=== PATIENT | female | born 1950 | race Caucasian/White ===

== ENCOUNTER 2017-08-30 10:33 | Day surgery (SDC) | payer OTHER ==
[~2017-08-30] VITALS: Ht 152.4 cm; Wt 71.4 kg
[2017-08-30 14:04] VITALS: BP 148/69; PULSE 59; RESP 22; Ht 152.4 cm; Wt 71.4 kg
[2017-08-30] MEDS ORDERED: HYDR25TA6 PO (14:19)
[2017-08-30] MEDS ORDERED: OMEP20CA16 PO (14:19)
[2017-08-30] MEDS ORDERED: ATEN50TA PO (14:19)
[2017-08-30] MEDS ORDERED: ZOC10 PO (14:19)
[2017-08-30] MEDS ORDERED: ASPI81TA3 PO (14:19)
[2017-08-30] MEDS ORDERED: BENA20TA48 PO (14:19)
[2017-08-30] MEDS ORDERED: METF1000 PO (14:19)
--- NOTE | 2017-08-30 14:28 | OPPN ---
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
[2017-08-30 14:58] VITALS: BP 135/74; PULSE 55; RESP 18
[2017-08-30] MEDS ORDERED: FENTAnyl 50 MCG/ML VIAL ONE (15:02)
[2017-08-30] MEDS ORDERED: MIDAZOLAM 1 MG/ML 2 ML INJ ONE (15:02)
--- NOTE | 2017-08-30 15:26 | GILP ---
DATE OF PROCEDURE: NAME OF PROCEDURE: Colonoscopy. SURGEON: Maria Luisa Figueroa MD PREOPERATIVE DIAGNOSIS: Positive occult blood in stool. POSTOPERATIVE DIAGNOSES: 1. Colonoscopy all the way to the cecum. 2. Internal hemorrhoids. 3. No colon neoplasm was identified. INDICATION FOR THE PROCEDURE: Ms. Katy Alvarez is a 67-year-old female patient who had posi tive occult blood in stool. The patient was scheduled for colonoscopy for further evaluation. The procedure and possible complications were well explained to the patient. She understood and con sented to the procedure. DESCRIPTION OF PROCEDURE: Under the influence of fentanyl and Versed, the colonoscope was carefully introduced in the rectum and under direct vision, it was advanced all the way to the cecum. FINDINGS: The patient had internal hemorrhoids. No colon neoplasm was identified. She tolerated the procedure very well and there was no complication from the procedure. At the end of the procedures, she was awake with stable vital signs and she was discharged home to the care of her family. IMPRESSION: 1. Colonoscopy all the way to the cecum. 2. Internal hemorrhoids. 3. No colon neoplasm was identified. PLAN: Next screening colonoscopy in 10 years. Dictated By: MARIA LUISA BERMUDEZ/SAM Conf#: [id number] DID#: [id number]
== END 2017-08-30 18:44 | disposition home or self-care (01) ==
LOC: GIL 10:33
PROVIDERS: ATTEND Internal Medicine Gastroenterology
DX: K92.1 Melena (principal); K64.8 Other hemorrhoids; E11.9 Type 2 diabetes mellitus without complications; I10 Essential (primary) hypertension
CPT/HCPCS: 45378; 82962; J2250; J3010